=== PATIENT | female | born 1965 | race Caucasian/White ===

== ENCOUNTER 2016-10-15 17:40 | Emergency (ER) | payer MEDICARE, OTHER ==
[~2016-10-15] VITALS: Ht 160 cm; Wt 75.0 kg
[~2016-10-15 17:40] MED LIST: ASPI81 PO; BETH25 PO; DOCU250C91 PO; ESCI20TA PO; FAMO20 PO; INSLAN SQ; INSNOV SQ; LOVA20 PO; TAMS0.4C32 PO; THERAGRAN M1 TA1 PO
[2016-10-15 17:57] LABS: GLUCOSE,POINT OF CARE 170 MG/DL (70-110)
[2016-10-15 18:41] LABS: BASOPHILS # (AUTO) 0.11 K/uL (0.00-0.20); BASOPHILS % (AUTO) 0.9 % (0.0-2.0); EOSINOPHILS # (AUTO) 0.19 K/uL (0.00-0.70); EOSINOPHILS % (AUTO) 1.57 % (1.0-6.0); HEMATOCRIT 34.4 % (36-46); HEMOGLOBIN 11.2 g/dL (12.0-16.0); LYMPHOCYTES # (AUTO) 2.7 K/uL (1.0-4.8); LYMPHOCYTES % (AUTO) 21.8 % (22.0-44.0); MEAN CORPUSCULAR HEMOGLOBIN 27.5 pg (26.0-34.0); MEAN CORPUSCULAR HGB CONC 32.7 G/dL (31.0-37.0); MEAN CORPUSCULAR VOLUME 84 fL (80-100); MONOCYTES # (AUTO) 0.9 K/uL (0.1-1.0); MONOCYTES % (AUTO) 7.3 % (2.0-9.0); NEUTROPHILS # (AUTO) 8.4 K/uL (1.8-7.7); NEUTROPHILS % (AUTO) 68.4 % (40.0-70.0); PLATELET COUNT (AUTO) 383 K/uL (150-450); RED BLOOD CELL COUNT(AUTO) 4.08 MIL/uL (4.00-5.20); RED CELL DISTRIBUTION WIDTH 13.9 % (11.5-14.5); WHITE BLOOD COUNT (AUTO) 12.3 K/uL (4.5-11.0)
[2016-10-15 18:48] LABS: CALCIUM, TOTAL 9.4 mg/dL (8.8-10.5); CREATININE 1.35 mg/dL (0.60-1.30); POTASSIUM 4.1 mmol/L (3.5-5.1)
[2016-10-15 19:00] LABS: ALBUMIN 4.2 g/dL (3.4-5.0); BILIRUBIN,TOTAL 0.2 mg/dL (0.1-1.0); TOTAL PROTEIN, SERUM 8.5 g/dL (6.4-8.2)
[2016-10-15 19:42] LABS: GLUCOSE,POINT OF CARE 143 MG/DL (70-110)
[2016-10-15 21:18] VITALS: BP 153/79
== END 2016-10-15 21:29 | disposition home or self-care (01) ==
LOC: EMS 17:45
DX: S90.412A Abrasion, left great toe, initial encounter (principal); E11.9 Type 2 diabetes mellitus without complications; Z86.73 Personal history of transient ischemic attack (TIA), and cerebral infarction without residual deficits; Z79.82 Long term (current) use of aspirin; Z79.4 Long term (current) use of insulin; I10 Essential (primary) hypertension; X58.XXXA Exposure to other specified factors, initial encounter; Y93.89 Activity, other specified; Y92.9 Unspecified place or not applicable; Y99.9 Unspecified external cause status
CPT/HCPCS: 82962; 99285

== ENCOUNTER 2018-03-17 16:32 | Inpatient (IN) | payer MEDICARE, OTHER ==
[~2018-03-17] VITALS: Ht 160 cm; Wt 77.6 kg
[~2018-03-17 16:32] MED LIST changes: +GLYCOPYRROLATE 0.2 MG/ML VIAL IM ONE; +KETOROLAC TROMETHAMINE 60 MG/2 ML VIAL IM ONE; +MIDAZOLAM HCL 2 MG/2 ML VIAL IVP ONE; +NEOSTIGMINE METHYLSULFATE 1 MG/ML 10 ML VIAL IVP ONE; +PROPOFOL 1% 20 ML VIAL IVP ONE; +SUCCINYLCHOLINE CHLORIDE 20 MG/ML 10 ML VIAL IVP ONE
[2018-03-17 17:14] LABS: BASOPHILS % (AUTO) 0.3 % (0.0-2.0); EOSINOPHILS % (AUTO) 0.1 % (1.0-6.0); HEMATOCRIT 33.1 % (36-46); HEMOGLOBIN 10.8 g/dL (12.0-16.0); LYMPHOCYTES # (AUTO) 1.6 K/uL (1.0-4.8); LYMPHOCYTES % (AUTO) 11.8 % (22.0-44.0); MEAN CORPUSCULAR HEMOGLOBIN 28.5 pg (26.0-34.0); MEAN CORPUSCULAR HGB CONC 32.6 G/dL (31.0-37.0); MEAN CORPUSCULAR VOLUME 88 fL (80-100); MONOCYTES # (AUTO) 1.2 K/uL (0.1-1.0); MONOCYTES % (AUTO) 8.6 % (2.0-9.0); NEUTROPHILS # (AUTO) 10.8 K/uL (1.8-7.7); NEUTROPHILS % (AUTO) 79.2 % (40.0-70.0); PLATELET COUNT (AUTO) 257 K/uL (150-450); RED BLOOD CELL COUNT(AUTO) 3.78 MIL/uL (4.00-5.20); RED CELL DISTRIBUTION WIDTH 13.7 % (11.5-14.5)
[2018-03-17 17:18] LABS: CALCIUM, TOTAL 9.2 mg/dL (8.8-10.5); CREATININE 1.66 mg/dL (0.60-1.30); POTASSIUM 3.8 mmol/L (3.5-5.1)
[2018-03-17 17:36] LABS: INR 1.2 (0.9-1.1)
[2018-03-17 17:44] LABS: ALBUMIN 3.6 g/dL (3.4-5.0); BILIRUBIN,TOTAL 0.5 mg/dL (0.1-1.0)
[2018-03-17] MEDS ORDERED: KETOROLAC TROMETHAMINE 30 MG/ML VIAL IVP ONE (17:45)
[2018-03-17] MEDS ORDERED: ONDANSETRON HCL 4 MG/2 ML VIAL IVP ONE ×2 (17:45→19:15)
[2018-03-17] MEDS ORDERED: SODIUM CHLORIDE 0.9% 1,000 ML IV ONE ×5 (17:45→22:32)
[2018-03-17 18:12] LABS: AMPHET/METH SCREEN,URINE NEGATIVE (NEGATIVE); BARBITURATE SCREEN, URINE NEGATIVE (NEGATIVE); BENZODIAZEPINES SCREEN,URINE NEGATIVE (NEGATIVE); CANNABINOID SCREEN,URINE NEGATIVE (NEGATIVE); COCAINE SCREEN,URINE NEGATIVE (NEGATIVE); METHADONE SCREEN, URINE NEGATIVE (NEGATIVE); OPIATE SCREEN,URINE NEGATIVE (NEGATIVE)
[2018-03-17 18:24] LABS: PHENCYCLIDINE SCREEN,URINE NEGATIVE (NEGATIVE)
[2018-03-17 18:58] LABS: GLUCOSE,POINT OF CARE 161 MG/DL (70-110)
[2018-03-17] MEDS ORDERED: PIPERACILLIN/TAZO 3.375 GM/D5W 50 ML IV ONE (19:15)
[2018-03-17] MEDS ORDERED: ACETAMINOPHEN 650 MG/ISO-OSM 65 ML IV ONE (19:15)
[2018-03-17] MEDS ORDERED: HYDROmorphone 2 MG/ML SYRINGE IVP ONE (19:15)
[2018-03-17] MEDS ORDERED: MetroNIDAZOLE 500 MG/NACL 100 ML IV ONE (19:15)
[2018-03-17 19:52] LABS: LACTIC ACID 2.7 mmol/L (0.4-2.0)
[2018-03-17] MEDS ORDERED: SODIUM CHLORIDE 0.9% 2,050 ML IV ONE (19:55)
[2018-03-17] MEDS ORDERED: HYDROmorphone 2 MG/ML SYRINGE IVP PRN ×4 (20:00→21:45)
[2018-03-17] MEDS ORDERED: ONDANSETRON HCL 4 MG/2 ML VIAL IVP PRN ×2 (20:00→21:00)
[2018-03-17] MEDS ORDERED: 0.9% SODIUM CHLORIDE 10 ML SYRINGE IVP PRN (20:00)
[2018-03-17] MEDS ORDERED: ACETAMINOPHEN 1000 MG/ISO-OSM 100 ML IV ONE (20:16)
[2018-03-17] MEDS ORDERED: KETAMINE HCL 50 MG/ML 10 ML VIAL ONE (20:19)
[2018-03-17] MEDS ORDERED: LIDOCAINE/PF 2% 5 ML VIAL ONE (20:29)
[2018-03-17] MEDS ORDERED: DEXAMETHASONE SOD PHOS 4 MG/ML VIAL ONE (20:38)
[2018-03-17] MEDS ORDERED: BUPIVACAINE 0.25%/EPI 1:200,000/PF 10 ML VIAL ONE (20:47)
[2018-03-17] MEDS ORDERED: RINGERS SOLUTION,LACTATED 1,000 ML IV ONE ×2 (20:47→21:46)
[2018-03-17] MEDS ORDERED: GUM MASTIC/STORAX/MSAL/ALCOHOL LIQUID 0.67 ML VIAL TP ONE (20:47)
[2018-03-17] MEDS ORDERED: GLUCAGON,HUMAN RECOMBINANT 1 MG VIAL IM PRN (21:00)
[2018-03-17] MEDS ORDERED: ACETAMINOPHEN 325 MG TABLET PO PRN (21:00)
[2018-03-17] MEDS ORDERED: MAGNESIUM HYDROXIDE SUSPENSION 30 ML UDCUP PO PRN (21:00)
[2018-03-17] MEDS ORDERED: OxyCODONE HCL/ACETAMINOPHEN 5-325 MG TABLET PO PRN (21:00)
[2018-03-17] MEDS ORDERED: ALBUTEROL SULFATE 2.5 MG/0.5 ML NEB SOLUTION NEB PRN (21:00)
[2018-03-17] MEDS ORDERED: BISACODYL 10 MG RECTAL RECTAL SUPPOSITORY PR PRN (21:00)
[2018-03-17] MEDS ORDERED: INSULIN LISPRO 100 UNITS/ML SQ PRN (21:00)
[2018-03-17] MEDS ORDERED: IPRATROPIUM BROMIDE 0.5 MG/2.5 ML NEB SOLUTION NEB PRN (21:00)
[2018-03-17] MEDS ORDERED: DEXTROSE 50%-WATER 25 GM/50 ML SYG IVP PRN (21:15)
[2018-03-17] MEDS ORDERED: SODIUM CHLORIDE 0.9% 10 ML ONE (21:42)
[2018-03-17] MEDS ORDERED: BACITRACIN 50,000 UNITS/VIAL ONE (21:43)
[2018-03-17] MEDS ORDERED: MEPERIDINE-PF 25 MG/ML VIAL IVP PRN (21:45)
[2018-03-17] MEDS ORDERED: FentaNYL CITRATE-PF 100 MCG/2 ML VIAL IVP PRN (21:45)
[2018-03-17] MEDS ORDERED: OxyCODONE HCL/ACETAMINOPHEN 10-325 MG TABLET PO PRN (21:45)
[2018-03-18] VITALS (7 sets, daily range): BP systolic 91–124; BP diastolic 50–75
[2018-03-18] MEDS: ACETAMINOPHEN 500 MG TABLET PO SCH ×4 (03:05→20:16)
[2018-03-18] MEDS: SODIUM CHLORIDE 0.9% 1,000 ML IV SCH ×2 (03:13→15:01)
[2018-03-18] MEDS: PIPERACILLIN/TAZO 3.375 GM/D5W 50 ML IV SCH ×3 (05:43→22:07)
[2018-03-18] MEDS: KETOROLAC TROMETHAMINE 15 MG/ML VIAL IVP SCH ×3 (05:46→17:37)
[2018-03-18] MEDS: INSULIN LISPRO 100 UNITS/ML SQ PRN ×4 (06:05→22:08)
[2018-03-18 06:41] LABS: HEMATOCRIT 27.6 % (36-46); HEMOGLOBIN 9.2 g/dL (12.0-16.0); MEAN CORPUSCULAR HEMOGLOBIN 29.1 pg (26.0-34.0); MEAN CORPUSCULAR HGB CONC 33.5 G/dL (31.0-37.0); MEAN CORPUSCULAR VOLUME 87 fL (80-100); PLATELET COUNT (AUTO) 177 K/uL (150-450); RED BLOOD CELL COUNT(AUTO) 3.18 MIL/uL (4.00-5.20); RED CELL DISTRIBUTION WIDTH 13.7 % (11.5-14.5)
[2018-03-18 06:48] LABS: INR 1.2 (0.9-1.1); PROTHROMBIN TIME 12.2 SEC (9.4-11.6)
[2018-03-18 06:48] LABS: GLUCOMETER DEV NAME(LOC) PV 4E2; GLUCOSE,POINT OF CARE 232 MG/DL (70-110)
[2018-03-18 06:55] LABS: ALBUMIN 2.3 g/dL (3.4-5.0); BILIRUBIN,TOTAL 0.2 mg/dL (0.1-1.0); CALCIUM, TOTAL 8.1 mg/dL (8.8-10.5); CREATININE 1.8 mg/dL (0.60-1.30); MAGNESIUM 1.3 mg/dL (1.80-2.40); PHOSPHORUS 3.3 mg/dL (2.5-4.9); POTASSIUM 4.1 mmol/L (3.5-5.1)
[2018-03-18 07:12] LABS: HEMOGLOBIN A1C 5.8 % (4.5-6.2)
[2018-03-18 07:29] LABS: BAND NEUTROPHILS % (MANUAL) 49 % (0-5); LYMPHOCYTES % (MANUAL) 10 % (22-44); MONOCYTES % (MANUAL) 11 % (2-9); SEGMENTED NEUTROPHILS % 30 % (40-70)
[2018-03-18 11:15] LABS: APPEARANCE,URINE CLOUDY (CLEAR); BILIRUBIN,URINE NEGATIVE (NEGATIVE); GLUCOSE, URINE (UA) NEGATIVE (NEGATIVE); KETONES,URINE NEGATIVE (NEGATIVE); LEUKOCYTE ESTERASE ,URINE NEGATIVE (NEGATIVE); NITRATE,URINE NEGATIVE (NEGATIVE); OCCULT BLOOD,URINE NEGATIVE (NEGATIVE); PH,URINE 5.5 (5.0-8.0); PROTEIN,URINE TRACE (NEGATIVE); UROBILINOGEN,URINE 0.2 mg/dL (<=1.0)
[2018-03-18] MEDS ORDERED: MAGNESIUM OXIDE 400 MG TABLET PO ONE (11:15)
[2018-03-18 11:32] LABS: BACTERIA,URINE None Seen /HPF (None Seen); RBC,URINE None Seen /HPF (0-2); SQUAMOUS EPITHELIAL CELL,UR Rare /LPF (None Seen)
[2018-03-18 17:38] LABS: GLUCOMETER DEV NAME(LOC) PV 4E2; GLUCOSE,POINT OF CARE 238 MG/DL (70-110)
[2018-03-18 17:38] LABS: GLUCOMETER DEV NAME(LOC) PV 4E2; GLUCOSE,POINT OF CARE 238 MG/DL (70-110)
[2018-03-18] MEDS: ZOLPIDEM TARTRATE 5 MG TABLET PO PRN (22:20)
[2018-03-18 22:28] LABS: GLUCOMETER DEV NAME(LOC) PV 4E2; GLUCOSE,POINT OF CARE 200 MG/DL (70-110)
[2018-03-19] MEDS: KETOROLAC TROMETHAMINE 15 MG/ML VIAL IVP SCH ×5 (00:18→23:52)
[2018-03-19] MEDS: SODIUM CHLORIDE 0.9% 1,000 ML IV SCH ×2 (02:42→20:30)
[2018-03-19] MEDS: ACETAMINOPHEN 500 MG TABLET PO SCH ×4 (03:50→20:29)
[2018-03-19] MEDS: PIPERACILLIN/TAZO 3.375 GM/D5W 50 ML IV SCH ×3 (05:28→21:28)
[2018-03-19] MEDS: INSULIN LISPRO 100 UNITS/ML SQ PRN ×2 (05:29→20:35)
[2018-03-19 05:35] VITALS: BP 141/68
[2018-03-19 06:10] LABS: BASOPHILS % (AUTO) 0.1 % (0.0-2.0); EOSINOPHILS % (AUTO) 0.1 % (1.0-6.0); HEMATOCRIT 24.7 % (36-46); HEMOGLOBIN 8.4 g/dL (12.0-16.0); LYMPHOCYTES # (AUTO) 0.7 K/uL (1.0-4.8); LYMPHOCYTES % (AUTO) 5.8 % (22.0-44.0); MEAN CORPUSCULAR HEMOGLOBIN 29.1 pg (26.0-34.0); MEAN CORPUSCULAR HGB CONC 34.1 G/dL (31.0-37.0); MEAN CORPUSCULAR VOLUME 85 fL (80-100); MONOCYTES # (AUTO) 0.7 K/uL (0.1-1.0); MONOCYTES % (AUTO) 6.4 % (2.0-9.0); NEUTROPHILS # (AUTO) 10.2 K/uL (1.8-7.7); PLATELET COUNT (AUTO) 186 K/uL (150-450); RED CELL DISTRIBUTION WIDTH 13.7 % (11.5-14.5)
[2018-03-19 06:20] LABS: CALCIUM, TOTAL 8.3 mg/dL (8.8-10.5); CREATININE 1.44 mg/dL (0.60-1.30); MAGNESIUM 1.6 mg/dL (1.80-2.40); POTASSIUM 4.3 mmol/L (3.5-5.1)
[2018-03-19 06:37] LABS: NEUTROPHILS % (AUTO) 87.6 % (40.0-70.0)
[2018-03-19 07:18] VITALS: BP 111/67
[2018-03-19] MEDS: ASPIRIN 81 MG CHEWABLE TABLET PO SCH (09:20)
[2018-03-19] MEDS: ATORVASTATIN CALCIUM 20 MG TABLET PO SCH (09:20)
[2018-03-19 10:23] LABS: GLUCOMETER DEV NAME(LOC) PV 4E2; GLUCOSE,POINT OF CARE 147 MG/DL (70-110)
[2018-03-19 11:11] VITALS: BP 130/72
[2018-03-19 15:19] VITALS: BP 135/69
[2018-03-19 15:23] LABS: GLUCOMETER DEV NAME(LOC) PV 4E2; GLUCOSE,POINT OF CARE 136 MG/DL (70-110)
[2018-03-19 19:48] LABS: GLUCOMETER DEV NAME(LOC) PV 4E2; GLUCOSE,POINT OF CARE 140 MG/DL (70-110)
[2018-03-19 20:08] VITALS: BP 139/67
[2018-03-19] MEDS: ZOLPIDEM TARTRATE 5 MG TABLET PO PRN (21:31)
[2018-03-19 21:53] LABS: GLUCOMETER DEV NAME(LOC) PV 4E2; GLUCOSE,POINT OF CARE 164 MG/DL (70-110)
[2018-03-19 23:48] VITALS: BP 136/86
[2018-03-20 04:00] VITALS: BP 135/77
[2018-03-20] MEDS: ACETAMINOPHEN 500 MG TABLET PO SCH ×4 (04:54→21:08)
[2018-03-20] MEDS: PIPERACILLIN/TAZO 3.375 GM/D5W 50 ML IV SCH ×3 (06:32→21:08)
[2018-03-20] MEDS: KETOROLAC TROMETHAMINE 15 MG/ML VIAL IVP SCH ×5 (06:32→23:33)
[2018-03-20 06:59] LABS: GLUCOMETER DEV NAME(LOC) PV 4E2; GLUCOSE,POINT OF CARE 99 MG/DL (70-110)
[2018-03-20 07:40] VITALS: BP 136/82
[2018-03-20] MEDS: ASPIRIN 81 MG CHEWABLE TABLET PO SCH (09:26)
[2018-03-20] MEDS: ATORVASTATIN CALCIUM 20 MG TABLET PO SCH (09:26)
[2018-03-20 12:10] VITALS: BP 146/88
[2018-03-20 14:03] LABS: GLUCOMETER DEV NAME(LOC) PV 4E2; GLUCOSE,POINT OF CARE 113 MG/DL (70-110)
[2018-03-20 15:45] VITALS: BP 153/80
[2018-03-20] MEDS: INSULIN LISPRO 100 UNITS/ML SQ PRN (18:16)
[2018-03-20 19:38] LABS: GLUCOMETER DEV NAME(LOC) PV 4E2; GLUCOSE,POINT OF CARE 162 MG/DL (70-110)
[2018-03-20 19:47] VITALS: BP 132/80
[2018-03-20 20:18] LABS: GLUCOMETER DEV NAME(LOC) PV 4E2; GLUCOSE,POINT OF CARE 119 MG/DL (70-110)
[2018-03-20] MEDS: ZOLPIDEM TARTRATE 5 MG TABLET PO PRN (21:08)
[2018-03-20 23:32] VITALS: BP 138/75
[2018-03-21] MEDS: ACETAMINOPHEN 500 MG TABLET PO SCH ×4 (03:00→22:48)
[2018-03-21] MEDS: PIPERACILLIN/TAZO 3.375 GM/D5W 50 ML IV SCH ×4 (03:27→22:48)
[2018-03-21 04:40] VITALS: BP 142/82
[2018-03-21] MEDS: KETOROLAC TROMETHAMINE 15 MG/ML VIAL IVP SCH ×3 (05:43→16:57)
[2018-03-21 06:48] LABS: GLUCOMETER DEV NAME(LOC) PV 4E2; GLUCOSE,POINT OF CARE 114 MG/DL (70-110)
[2018-03-21 08:00] VITALS: BP 134/84
[2018-03-21] MEDS: ATORVASTATIN CALCIUM 20 MG TABLET PO SCH (08:45)
[2018-03-21] MEDS: ASPIRIN 81 MG CHEWABLE TABLET PO SCH (08:45)
[2018-03-21 09:30] LABS: BASOPHILS % (AUTO) 0.2 % (0.0-2.0); EOSINOPHILS % (AUTO) 0.7 % (1.0-6.0); HEMATOCRIT 29.1 % (36-46); HEMOGLOBIN 9.8 g/dL (12.0-16.0); MEAN CORPUSCULAR HEMOGLOBIN 28.7 pg (26.0-34.0); MEAN CORPUSCULAR HGB CONC 33.6 G/dL (31.0-37.0); MEAN CORPUSCULAR VOLUME 85 fL (80-100); MONOCYTES # (AUTO) 1.3 K/uL (0.1-1.0); MONOCYTES % (AUTO) 6.9 % (2.0-9.0); PLATELET COUNT (AUTO) 322 K/uL (150-450); RED BLOOD CELL COUNT(AUTO) 3.41 MIL/uL (4.00-5.20); RED CELL DISTRIBUTION WIDTH 14.3 % (11.5-14.5)
[2018-03-21 09:37] LABS: NEUTROPHILS % (AUTO) 87.2 % (40.0-70.0)
[2018-03-21 09:41] LABS: CALCIUM, TOTAL 8.7 mg/dL (8.8-10.5); CREATININE 1.33 mg/dL (0.60-1.30); MAGNESIUM 1.5 mg/dL (1.80-2.40); POTASSIUM 3.5 mmol/L (3.5-5.1)
[2018-03-21 12:09] VITALS: BP 142/66
[2018-03-21] MEDS: INSULIN LISPRO 100 UNITS/ML SQ PRN ×2 (12:15→21:50)
[2018-03-21 12:17] LABS: GLUCOMETER DEV NAME(LOC) PV 4E2; GLUCOSE,POINT OF CARE 156 MG/DL (70-110)
[2018-03-21] MEDS ORDERED: MAGNESIUM SULFATE 2 GM/WATER 50 ML IV PRN (14:30)
[2018-03-21] MEDS ORDERED: MAGNESIUM SULFATE 4 GM/WATER 100 ML IV PRN (14:30)
[2018-03-21] MEDS ORDERED: MAGNESIUM OXIDE 400 MG TABLET PO PRN (14:30)
[2018-03-21 15:37] LABS: ALBUMIN 2.1 g/dL (3.4-5.0)
[2018-03-21] MEDS ORDERED: VANCOMYCIN HCL 1.25 GM in DEXTROSE 5%-WATER 250 ML IV ONE (16:00)
[2018-03-21 17:23] LABS: GLUCOMETER DEV NAME(LOC) 6N 1E; GLUCOSE,POINT OF CARE 133 MG/DL (70-110)
[2018-03-21 19:39] VITALS: BP 152/83
[2018-03-21 23:03] LABS: GLUCOMETER DEV NAME(LOC) 6N 2D; GLUCOSE,POINT OF CARE 155 MG/DL (70-110)
[2018-03-21 23:47] VITALS: BP 148/83
[2018-03-22] MEDS: KETOROLAC TROMETHAMINE 15 MG/ML VIAL IVP SCH ×5 (00:15→23:28)
[2018-03-22] MEDS: ACETAMINOPHEN 500 MG TABLET PO SCH ×4 (03:45→20:56)
[2018-03-22 04:43] VITALS: BP 154/79
[2018-03-22] MEDS: PIPERACILLIN/TAZO 3.375 GM/D5W 50 ML IV SCH ×4 (04:47→22:57)
[2018-03-22 07:03] LABS: GLUCOMETER DEV NAME(LOC) 6N 1E; GLUCOSE,POINT OF CARE 112 MG/DL (70-110)
[2018-03-22 07:42] VITALS: BP 149/74
[2018-03-22] MEDS: ASPIRIN 81 MG CHEWABLE TABLET PO SCH (08:51)
[2018-03-22] MEDS: ATORVASTATIN CALCIUM 20 MG TABLET PO SCH (08:51)
[2018-03-22] MEDS: VANCOMYCIN HCL 750 MG in DEXTROSE 5%-WATER 250 ML IV SCH ×2 (08:51→20:57)
[2018-03-22 09:31] LABS: CALCIUM, TOTAL 8.3 mg/dL (8.8-10.5); CREATININE 1.3 mg/dL (0.60-1.30); POTASSIUM 3.6 mmol/L (3.5-5.1)
[2018-03-22 09:57] LABS: EOSINOPHILS % (AUTO) 1.2 % (1.0-6.0); HEMATOCRIT 26.8 % (36-46); HEMOGLOBIN 9.1 g/dL (12.0-16.0); LYMPHOCYTES # (AUTO) 1.2 K/uL (1.0-4.8); MEAN CORPUSCULAR HEMOGLOBIN 29.1 pg (26.0-34.0); MEAN CORPUSCULAR VOLUME 86 fL (80-100); MONOCYTES # (AUTO) 1.8 K/uL (0.1-1.0); MONOCYTES % (AUTO) 10.3 % (2.0-9.0); NEUTROPHILS # (AUTO) 14.5 K/uL (1.8-7.7); NEUTROPHILS % (AUTO) 81.5 % (40.0-70.0); PLATELET COUNT (AUTO) 343 K/uL (150-450); RED BLOOD CELL COUNT(AUTO) 3.12 MIL/uL (4.00-5.20); RED CELL DISTRIBUTION WIDTH 14.1 % (11.5-14.5)
[2018-03-22 11:33] VITALS: BP 138/70
[2018-03-22] MEDS: INSULIN LISPRO 100 UNITS/ML SQ PRN ×2 (12:14→17:15)
[2018-03-22 15:15] VITALS: BP 134/76
[2018-03-22 17:38] LABS: GLUCOMETER DEV NAME(LOC) 6N 1E; GLUCOSE,POINT OF CARE 115 MG/DL (70-110)
[2018-03-22 17:38] LABS: GLUCOMETER DEV NAME(LOC) 6N 1E; GLUCOSE,POINT OF CARE 151 MG/DL (70-110)
[2018-03-22 19:44] VITALS: BP 154/82
[2018-03-22 21:08] LABS: GLUCOMETER DEV NAME(LOC) 6N 1E; GLUCOSE,POINT OF CARE 119 MG/DL (70-110)
[2018-03-22 23:41] VITALS: BP 151/68
[2018-03-23] MEDS: PIPERACILLIN/TAZO 3.375 GM/D5W 50 ML IV SCH ×2 (03:38→11:38)
[2018-03-23] MEDS: ACETAMINOPHEN 500 MG TABLET PO SCH ×2 (03:38→08:17)
[2018-03-23 04:20] VITALS: BP 123/68
[2018-03-23] MEDS: KETOROLAC TROMETHAMINE 15 MG/ML VIAL IVP SCH ×2 (05:43→12:00)
[2018-03-23 06:13] LABS: BASOPHILS % (AUTO) 0.3 % (0.0-2.0); EOSINOPHILS % (AUTO) 1.3 % (1.0-6.0); HEMATOCRIT 24.4 % (36-46); HEMOGLOBIN 8.1 g/dL (12.0-16.0); LYMPHOCYTES # (AUTO) 1.3 K/uL (1.0-4.8); LYMPHOCYTES % (AUTO) 8.7 % (22.0-44.0); MEAN CORPUSCULAR HEMOGLOBIN 28.4 pg (26.0-34.0); MEAN CORPUSCULAR HGB CONC 33.4 G/dL (31.0-37.0); MEAN CORPUSCULAR VOLUME 85 fL (80-100); MONOCYTES # (AUTO) 1.5 K/uL (0.1-1.0); MONOCYTES % (AUTO) 9.6 % (2.0-9.0); NEUTROPHILS # (AUTO) 12.3 K/uL (1.8-7.7); NEUTROPHILS % (AUTO) 80.1 % (40.0-70.0); PLATELET COUNT (AUTO) 343 K/uL (150-450); RED BLOOD CELL COUNT(AUTO) 2.87 MIL/uL (4.00-5.20); RED CELL DISTRIBUTION WIDTH 14.2 % (11.5-14.5)
[2018-03-23 06:21] LABS: CALCIUM, TOTAL 7.9 mg/dL (8.8-10.5); CREATININE 1.31 mg/dL (0.60-1.30); POTASSIUM 3.2 mmol/L (3.5-5.1)
[2018-03-23 06:54] LABS: GLUCOMETER DEV NAME(LOC) 6N 1E; GLUCOSE,POINT OF CARE 92 MG/DL (70-110)
[2018-03-23 08:00] VITALS: BP 154/84
[2018-03-23] MEDS: VANCOMYCIN HCL 750 MG in DEXTROSE 5%-WATER 250 ML IV SCH (08:16)
[2018-03-23] MEDS: ATORVASTATIN CALCIUM 20 MG TABLET PO SCH (08:17)
[2018-03-23] MEDS: ASPIRIN 81 MG CHEWABLE TABLET PO SCH (08:17)
[2018-03-23] MEDS ORDERED: POTASSIUM CHLORIDE 20 MEQ ER TABLET PO ONE (10:15)
[2018-03-23 11:40] VITALS: BP 153/87
[2018-03-23] MEDS: INSULIN LISPRO 100 UNITS/ML SQ PRN (12:05)
[2018-03-23] MEDS ORDERED: CIPR-278 PO (12:40)
[2018-03-23] MEDS ORDERED: METR500 PO (12:40)
[2018-03-23 14:23] LABS: GLUCOMETER DEV NAME(LOC) 6N 1E; GLUCOSE,POINT OF CARE 134 MG/DL (70-110)
== END 2018-03-23 14:00 | disposition home or self-care (01) | DRG 853 ==
LOC: EMS 16:33 → 4E 20:00 → 6N 03-21 14:30
PROVIDERS: ADMIT Internal Medicine; ATTEND Internal Medicine
PROC: 0DTJ4ZZ Resection of Appendix, Percutaneous Endoscopic Approach (ICD-10-PCS; principal; 2018-03-17 20:30)
DX: A41.9 Sepsis, unspecified organism (principal); K35.32 Acute appendicitis with perforation, localized peritonitis, and gangrene, without abscess; N17.9 Acute kidney failure, unspecified; E87.1 Hypo-osmolality and hyponatremia; I69.354 Hemiplegia and hemiparesis following cerebral infarction affecting left non-dominant side; E11.65 Type 2 diabetes mellitus with hyperglycemia; K21.9 Gastro-esophageal reflux disease without esophagitis; E78.5 Hyperlipidemia, unspecified; E83.42 Hypomagnesemia; E87.5 Hyperkalemia; F32.9 Major depressive disorder, single episode, unspecified; K59.00 Constipation, unspecified; E11.21 Type 2 diabetes mellitus with diabetic nephropathy; I10 Essential (primary) hypertension; R32 Unspecified urinary incontinence; Z90.710 Acquired absence of both cervix and uterus; Z87.440 Personal history of urinary (tract) infections; Z79.899 Other long term (current) drug therapy
CPT/HCPCS: 74176; 74177; 83036; 83605; 83735; 84100; 87040; 87081; 88304; 93005; 96365; 96368; 96375; 96376; 97116; 97162; G0378; J0131; J0330; J1100; J1170; J1885; J2250; J2405; J2543; J2704; J3370; J3475; J3490; J7030; J7060; J7120